=== PATIENT | female | born 1970 | race African-American/Black ===

== ENCOUNTER 2021-06-16 18:38 | Emergency (ER) | payer MEDICAID, OTHER ==
[~2021-06-16] VITALS: Ht 185.4 cm; Wt 89.8 kg
[~2021-06-16 18:38] MED LIST: CYCL5TAB PO; IBUP-1060 PO; IBUP100T8 PO; TRAM-48 PO
[2021-06-16 19:25] VITALS: BP 167/86
[2021-06-16] MEDS ORDERED: IBUPROFEN 400 MG TABLET. PO ONE (20:00)
[2021-06-16] MEDS ORDERED: ACETAMINOPHEN 500 MG TABLET PO ONE (20:00)
[2021-06-16] MEDS ORDERED: PSEUDOEPHEDRINE 30 MG TABLET. PO ONE (20:00)
[2021-06-16] MEDS ORDERED: BENZONATATE 100 MG CAPSULE. PO ONE (20:00)
[2021-06-16] MEDS ORDERED: FLUT9.9S NS (20:10)
[2021-06-16] MEDS ORDERED: BENZ-8 PO (20:10)
--- NOTE | 2021-06-16 20:10 | PHYS DOC ---
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 Drug Use: None Adult General Chief Complaint Chief Complaint: Congestion HPI HPI The patient is a 50-year-old female with a history of tobacco use and opiate drug abuse (clean for 7 days). She denies any chronic medical problems for which she takes daily medications. Ms. Garcia presents for evaluation of nasal congestion, rhinorrhea and mild dry cough with onset over the last 2 days. No fevers, neck pain/stiffness/meningismus, sore throat, shortness of breath, chest pain of any kind, abdominal pain of any kind, flank pain, midline back pain, dysuria, hematuria, polyuria or oliguria, changes in bowel habits, pain or swelling to arms or legs. Patient is alert, pleasantly and appropriately interactive and in no acute distress, ambulatory with a narrow, steady gait to her ED bed. Vital signs are appropriate here aside from mildly elevated blood pressure. Oxygenation is normal. Patient has not tried taking any [id number] medications for her symptoms. Review of Systems Review of Systems A 12 point review of systems was completed and was negative except where noted in HPI above. Current Medications Current Medications Current Medications Medications (Trade) Dose Ordered Sig/[place] Start Time Stop Time Status Last Admin Dose Admin Acetaminophen (Tylenol) 1,000 mg 1X ONCE 06/16/21 20:00 06/16/21 20:01 UNV Benzonatate (Tessalon Perle) 100 mg 1X ONCE 06/16/21 20:00 06/16/21 20:01 UNV Ibuprofen (Motrin) 800 mg 1X ONCE 06/16/21 20:00 06/16/21 20:01 UNV Pseudoephedrine HCl (Sudafed) 30 mg ONCE 06/16/21 20:00 UNV Allergies Allergies Allergies Coded Allergies Type Severity Reaction Last Updated Verified Penicillins Allergy Unknown Hives 10/04/13 Yes Physical Exam Physical Exam 50-year-old female appearing nontoxic and in no acute distress. Head is normocephalic and atraumatic. Neck is supple and nontender. Patient ranges neck fully in all dimensions without discomfort or distress and there is no neck stiffness/rigidity/meningismus seen. Kernig's and Brudzinski's sign negative. Oropharynx is moist. No posterior oropharyngeal erythema, tonsillar exudates or swelling or uvular deviation. Patient is tolerating secretions normally and speaking comfortably in a normal tone of voice. Tympanic memories clear bilaterally. No EAC or mastoid process abnormalities bilaterally. Nasal mucus bilaterally. Lungs are clear to auscultation at all stations. No wheezes, rhonchi, or other adventitious sounds heard. Normal work of breathing. No tachypnea, no accessory muscle use. There is a normal S1 and S2 without rubs or gallops and capillary refill is appropriate, less than 2 seconds globally. Abdomen is soft, nontender and nondistended. Skin is warm and dry without cyanosis, clubbing or edema. Psychiatrically, the patient demonstrates appropriate mood and affect and is alert. Evaluation of the extremities reveals BUEs and BLEs neurovascularly intact distally with strength out of 5, sensation intact light touch in all nerve distributions, radial, DP and PT pulses 2+ and equal bilaterally, capillary refill less than 2 seconds, hands and feet warm and well-perfused. No dependent peripheral edema distally. No calf tenderness or swelling bilaterally. Homans test is negative bilaterally. Current Patient Data Vital Signs Vital Signs Date Time Temp Pulse Resp B/P (MAP) Pulse Ox O2 Delivery O2 Flow Rate FiO2 06/16/21 19:25 89.2 93 18 167/86 (113) 100 Room Air 89.2 EKG EKG [] Radiology/Procedures Radiology/Procedures [] Course & Med Decision Making Course & Med Decision Making 50-year-old female, well-appearing, here for mild upper respiratory viral symptoms. Vital signs and clinical examination are reassuring. No evidence of emergency medical condition has been identified. Will prescribe medication for symptom management, encourage fluids and rest and have counseled close follow-up with primary in the next 2 to 4 days. Patient understands that if he feels worse instead of better or develops other new symptoms of concern that she should return to the emergency department immediately for reevaluation. All questions are answered. Dragon Disclaimer Dragon Disclaimer This electronic medical record was generated, in whole or in part, using a voice recognition dictation system. Departure Departure Impression: Primary Impression: Upper respiratory infection, viral Disposition: HOME / SELF CARE / HOMELESS Condition: IMPROVED Patient Instructions: Upper Respiratory Infection, Adult Additional Instructions: Follow-up very closely with your primary care doctor in the office in the next 2 to 4 days for a reevaluation of your symptoms and to discussion of next best steps in care. Drink plenty of fluids to stay hydrated. Get plenty of rest. Recommend you take [id number] generic DayQuil and NyQuil cough and cold medication for your symptoms. We are prescribing Flonase nasal spray for sinus symptoms and benzonatate for cough. Return to the emergency department right away for worsening symptoms of any kind or with any other new symptoms of concern. Scripts Benzonatate (BENZONATATE) 100 Mg Capsule 1 CAP PO TID PRN for COUGH, #21 CAP Prov: CASSY BAKER MD 06/16/21 Fluticasone Propionate (Flonase Allergy Relief) 9.9 Ml [place].susp 2 SPRAYS NS DAILY for 10 Days, #9.9 ML Prov: CASSY BAKER MD 06/16/21 CASSY BAKER MD Jun 16, 2021 20:10
== END 2021-06-16 20:15 | disposition home or self-care (01) ==
LOC: ER 18:38
DX: J06.9 Acute upper respiratory infection, unspecified (principal); B97.89 Other viral agents as the cause of diseases classified elsewhere; I10 Essential (primary) hypertension; F17.200 Nicotine dependence, unspecified, uncomplicated; Z88.0 Allergy status to penicillin
CPT/HCPCS: 99284